=== PATIENT | male | born 1975 ===

== ENCOUNTER 2018-09-11 09:47 | Emergency (ER) | payer OTHER ==
[~2018-09-11] VITALS: Ht 177.8 cm; Wt 86.2 kg
[~2018-09-11 09:47] MED LIST: "\\\"MUSCLE RELAXER\\\""; ALBU90OI INH; AMOX500 PO; BENZ100A PO; BENZ2 PO; Benztropine Me0.5 MG; CLON1 PO; DIVA500EC PO; DOXY100 PO; HALO5 PO; HYDACE5 PO; IBUP600 PO; IBUP800 PO; LAVAP17G PO; LISI20 PO; LOXA10 PO; MIRT15 PO; MOMENI; Monodox100 MG PO; NAPR500 PO; NAPR550 PO; OMEP20ER PO; PENVK500 PO; PROM25 PO; QUET200 PO; RANI150 PO; RXNAPNA550 PO; RXTRAM50 PO; SPACE CHAMBER1 EACH MC; TRAM50 PO; Trihexyphenidyl2 MG PO; Veetids 500500 MG PO; Zofran Odt8 MG SL; [UNRECOGNIZED DRUG - REMARK]
[2018-09-11] MEDS ORDERED: Ultram50 MG PO (10:13)
[2018-09-11] MEDS ORDERED: Veetids 500500 MG PO (10:13)
== END 2018-09-11 10:25 | disposition home or self-care (01) ==
LOC: ER 09:47
DX: K08.89 Other specified disorders of teeth and supporting structures (principal); F17.210 Nicotine dependence, cigarettes, uncomplicated
CPT/HCPCS: 99282

== ENCOUNTER 2018-09-17 15:25 | Observation (INO) | payer OTHER ==
[~2018-09-17] VITALS: Ht 177.8 cm; Wt 74.8 kg
[~2018-09-17 15:25] MED LIST changes: +Ultram50 MG PO
[2018-09-17 15:56] LABS: BASOPHILS PERCENT AUTO 1 % (0-2); EOSINOPHILS ABSOLUTE AUTO 0.02 K/mm3 (0.00-0.68); EOSINOPHILS PERCENT AUTO 0 % (0-6); Hematocrit 39.8 % (37.0-53.0); Hemoglobin 13.9 g/dL (13.5-17.5); IMMATURE GRAN ABSOLUTE AUTO 0.04 K/mm3 (0.00-0.10); IMMATURE GRAN PERCENT AUTO 0 % (0-1); LYMPHOCYTES PERCENT AUTO 12 % (21-46); MONOCYTES ABSOLUTE AUTO 2.42 K/mm3 (0.16-1.47); MONOCYTES PERCENT AUTO 18 % (4-13); Mean Corpuscular HGB 30.3 pg (26.0-34.0); Mean Corpuscular HGB Conc 34.9 g/dL (31.5-36.5); Mean Corpuscular Volume 87 fL (80-100); Mean Platelet Volume 8.7 fL (9.1-12.4); NEUTROPHILS ABSOLUTE AUTO 9.68 K/mm3 (1.96-9.15); NEUTROPHILS PERCENT AUTO 70 % (41-73); Platelet Count 198 K/mm3 (150-400); RDW Coefficient Variation 13.2 % (11.7-14.2); RDW Standard Deviation 41.5 fL (35.1-46.3); Red Blood Cell Count 4.58 M/mm3 (4.30-5.90); White Blood Cell Count 13.86 K/mm3 (4.00-11.30)
[2018-09-17 16:18] LABS: Salicylate <1.7 mg/dL (2.8-20.0)
[2018-09-17 16:27] LABS: Alanine Aminotransfer (ALT/SGP 82 U/L (12-78); Albumin, Blood 3.9 g/dL (3.4-5.0); Albumin/Globulin Ratio 0.9 (0.8-1.8); Alk Phos 57 U/L (50-136); Anion Gap 14 mmol/L (6-16); Aspartate Aminotrans (AST/SGOT 461 U/L (12-37); Bilirubin, Total 1.3 mg/dL (0.1-1.0); Blood Urea Nitrogen 13 mg/dL (8-24); Bun/Creatinine Ratio 11.9 (12.0-20.0); CO2, Blood 20 mmol/L (21-32); Chloride, Blood 91 mmol/L (98-108); Creatinine, Blood 1.09 mg/dL (0.60-1.20); Globulin, Blood 4.5 g/dL (2.2-4.0); Glomerular Filtration Rate >60 (60-); Glucose, Blood 84 mg/dL (70-99); Potassium, Blood 3.9 mmol/L (3.5-5.5); Sodium, Blood 125 mmol/L (136-145); Total Protein, Blood 8.4 g/dL (6.4-8.2)
[2018-09-17 17:18] LABS: Acetaminophen, Random <2.0 ug/mL (10.0-30.0); Ethanol (Alcohol), Blood, Med <3 mg/dL
[2018-09-17 17:24] LABS: Source, Urine Clean Catch
[2018-09-17 17:29] LABS: Appearance, Urine Clear (Clear); Bilirubin, Urine Neg (Neg); Blood, Urine 3+ (Neg); Color, Urine Yellow (P-Yellow); Glucose Qualitative, Urine Neg (Neg); Ketones, Urine 3+ (Neg); Leukocyte Esterase, Urine Neg (Neg); Nitrite, Urine Neg (Neg); Protein, Urine Neg (Neg); Specific Gravity, Urine 1.005 (1.003-1.022); Urobilinogen, Urine NORM (Normal)
[2018-09-17 17:51] LABS: U Amphetamine Screen Not Detected; U Barbituate Screen Not Detected; U Benzodiazapine Screen Not Detected; U Buprenorphine Screen Not Detected; U Cannabinoids Screen Not Detected; U Cocaine Screen Not Detected; U Methadone Screen Not Detected; U Methamphetamine Screen Not Detected; U Opiates Screen Not Detected; U Oxycodone Screen Not Detected; U Phencyclidine Screen Not Detected; U Propoxyphene Screen Not Detected
[2018-09-17 17:53] LABS: Squamous Epithelial Cells Rare /hpf (Few)
[2018-09-17 17:54] LABS: Bacteria Not Seen /hpf; White Blood Cells, Urine Not Seen /hpf (0-5)
[2018-09-17 21:40] LABS: Magnesium, Blood 1.5 mg/dL (1.6-2.4); Phosphorus, Blood 3.1 mg/dL (2.5-4.9)
[2018-09-17 23:36] LABS: Alanine Aminotransfer (ALT/SGP 79 U/L (12-78); Albumin, Blood 3.1 g/dL (3.4-5.0); Albumin/Globulin Ratio 0.8 (0.8-1.8); Alk Phos 50 U/L (50-136); Anion Gap 10 mmol/L (6-16); Aspartate Aminotrans (AST/SGOT 416 U/L (12-37); Bilirubin, Total 0.7 mg/dL (0.1-1.0); Blood Urea Nitrogen 16 mg/dL (8-24); Bun/Creatinine Ratio 13.2 (12.0-20.0); CO2, Blood 25 mmol/L (21-32); Calcium, Blood 7.9 mg/dL (8.5-10.1); Chloride, Blood 100 mmol/L (98-108); Creatinine, Blood 1.21 mg/dL (0.60-1.20); Glomerular Filtration Rate >60 (60-); Glucose, Blood 85 mg/dL (70-99); Total Protein, Blood 7.1 g/dL (6.4-8.2)
[2018-09-17 23:39] LABS: Sodium, Blood 135 mmol/L (136-145)
[2018-09-17 23:40] LABS: Calcium, Ionized (POC) 1.16 mmol/L (1.10-1.46); Chloride (POC) 100 mmol/L (98-108); Creatinine (POC) 1.2 mg/dL (0.8-1.3); Glucose (ISTAT POC) 89 mg/dL (70-99); Hemoglobin (POC) 13.6 g/dL (13.5-17.5); Potassium (POC) 3.9 mmol/L (3.5-5.5); Sodium (POC) 138 mmol/L (135-148); Total CO2 (POC) 23 mmol/L (21-32)
[2018-09-18 08:49] LABS: Anion Gap 11 mmol/L (6-16); Blood Urea Nitrogen 14 mg/dL (8-24); CO2, Blood 23 mmol/L (21-32); Calcium, Blood 8.4 mg/dL (8.5-10.1); Chloride, Blood 105 mmol/L (98-108); Creatinine, Blood 1.17 mg/dL (0.60-1.20); Glomerular Filtration Rate >60 (60-); Glucose, Blood 107 mg/dL (70-99); Sodium, Blood 139 mmol/L (136-145)
[2018-09-18] MEDS ORDERED: TRAM50 (20:57)
[2018-09-18] MEDS ORDERED: BENZ2 (20:57)
[2018-09-18] MEDS ORDERED: Trihexyphenidyl5 MG (20:58)
[2018-09-19] MEDS ORDERED: Requip0.5 MG PO (09:23)
[2018-09-20 07:08] LABS: HBSAG SCREEN Negative (Negative); HEP A AB, IGM Negative (Negative); HEP B CORE AB, IGM Negative (Negative); HEP C VIRUS AB >11.0 (0.0-0.9)
== END 2018-09-19 10:00 | disposition home or self-care (01) ==
LOC: ER 15:25 → EOR 15:26
PROVIDERS: Emergency Medicine; Physician Assistant; ADMIT Emergency Medicine
DX: F23 Brief psychotic disorder (principal); F31.9 Bipolar disorder, unspecified; F19.10 Other psychoactive substance abuse, uncomplicated; E87.1 Hypo-osmolality and hyponatremia; D72.829 Elevated white blood cell count, unspecified; F17.210 Nicotine dependence, cigarettes, uncomplicated; R00.0 Tachycardia, unspecified; Z79.899 Other long term (current) drug therapy
CPT/HCPCS: 36415; 71046; 80047; 80048; 80053; 80074; 81001; 83735; 84100; 84443; 85014; 85025; 93005; 93010; 96360; 96372; 99285-25; G0378; G0480; J1200; J1630; J7030; Q3014

== ENCOUNTER 2018-09-19 14:53 | Emergency (ER) | payer OTHER ==
[~2018-09-19] VITALS: Ht 177.8 cm; Wt 86.2 kg
[~2018-09-19 14:53] MED LIST changes: +BENZ2; +Requip0.5 MG PO; +TRAM50; +Trihexyphenidyl5 MG
[2018-09-19 15:45] LABS: BASOPHILS ABSOLUTE AUTO 0.11 K/mm3 (0.00-0.23); BASOPHILS PERCENT AUTO 1 % (0-2); EOSINOPHILS ABSOLUTE AUTO 0.46 K/mm3 (0.00-0.68); EOSINOPHILS PERCENT AUTO 4 % (0-6); Hematocrit 39.8 % (37.0-53.0); Hemoglobin 13.4 g/dL (13.5-17.5); IMMATURE GRAN ABSOLUTE AUTO 0.04 K/mm3 (0.00-0.10); IMMATURE GRAN PERCENT AUTO 0 % (0-1); LYMPHOCYTES ABSOLUTE AUTO 2.05 K/mm3 (0.84-5.20); LYMPHOCYTES PERCENT AUTO 19 % (21-46); MONOCYTES ABSOLUTE AUTO 1.89 K/mm3 (0.16-1.47); MONOCYTES PERCENT AUTO 18 % (4-13); Mean Corpuscular HGB 30.9 pg (26.0-34.0); Mean Corpuscular HGB Conc 33.7 g/dL (31.5-36.5); Mean Platelet Volume 8.7 fL (9.1-12.4); NEUTROPHILS ABSOLUTE AUTO 6.22 K/mm3 (1.96-9.15); NEUTROPHILS PERCENT AUTO 58 % (41-73); Platelet Count 216 K/mm3 (150-400); RDW Coefficient Variation 13.6 % (11.7-14.2); RDW Standard Deviation 46.4 fL (35.1-46.3); Red Blood Cell Count 4.34 M/mm3 (4.30-5.90); White Blood Cell Count 10.77 K/mm3 (4.00-11.30)
[2018-09-19 15:46] LABS: Mean Corpuscular Volume 92 fL (80-100)
[2018-09-19 16:05] LABS: Alanine Aminotransfer (ALT/SGP 82 U/L (12-78); Albumin, Blood 3.4 g/dL (3.4-5.0); Albumin/Globulin Ratio 0.8 (0.8-1.8); Alk Phos 70 U/L (50-136); Anion Gap 8 mmol/L (6-16); Aspartate Aminotrans (AST/SGOT 214 U/L (12-37); Bilirubin, Total 0.3 mg/dL (0.1-1.0); Blood Urea Nitrogen 18 mg/dL (8-24); Bun/Creatinine Ratio 17.8 (12.0-20.0); CO2, Blood 23 mmol/L (21-32); Calcium, Blood 8.1 mg/dL (8.5-10.1); Chloride, Blood 109 mmol/L (98-108); Creatinine, Blood 1.01 mg/dL (0.60-1.20); Globulin, Blood 4.4 g/dL (2.2-4.0); Glomerular Filtration Rate >60 (60-); Glucose, Blood 96 mg/dL (70-99); Potassium, Blood 4.3 mmol/L (3.5-5.5); Sodium, Blood 140 mmol/L (136-145); Total Protein, Blood 7.8 g/dL (6.4-8.2)
== END 2018-09-19 16:36 | disposition home or self-care (01) ==
LOC: ER 14:53
PROVIDERS: Physician Assistant
DX: G25.81 Restless legs syndrome (principal); Z79.899 Other long term (current) drug therapy; Z79.891 Long term (current) use of opiate analgesic; F17.210 Nicotine dependence, cigarettes, uncomplicated; F20.9 Schizophrenia, unspecified
CPT/HCPCS: 36415; 80053; 85025; 99283

== ENCOUNTER 2018-09-21 15:56 | Emergency (ER) | payer OTHER ==
[~2018-09-21] VITALS: Ht 177.8 cm; Wt 86.2 kg
[2018-09-22] MEDS ORDERED: Ropinirole HCl0.5 MG PO (02:17)
== END 2018-09-21 16:19 | disposition home or self-care (01) ==
LOC: ER 15:56
DX: Z76.0 Encounter for issue of repeat prescription (principal); Z79.891 Long term (current) use of opiate analgesic; Z79.899 Other long term (current) drug therapy; F20.9 Schizophrenia, unspecified; F17.210 Nicotine dependence, cigarettes, uncomplicated
CPT/HCPCS: 99281

== ENCOUNTER 2018-09-22 02:05 | Emergency (ER) | payer OTHER ==
[~2018-09-22] VITALS: Ht 177.8 cm; Wt 86.2 kg
[2018-09-22] MEDS ORDERED: Ropinirole HCl0.5 MG PO (02:17)
== END 2018-09-22 02:39 | disposition home or self-care (01) ==
LOC: ER 02:05
DX: M46.1 Sacroiliitis, not elsewhere classified (principal); Z79.899 Other long term (current) drug therapy; F17.210 Nicotine dependence, cigarettes, uncomplicated
CPT/HCPCS: 96372; 99283-25; J1885

== ENCOUNTER 2018-09-22 03:39 | Emergency (ER) | payer OTHER ==
[~2018-09-22] VITALS: Ht 177.8 cm; Wt 86.2 kg
[~2018-09-22 03:39] MED LIST changes: +Ropinirole HCl0.5 MG PO
== END 2018-09-22 03:45 | disposition home or self-care (01) ==
LOC: ER 03:39
DX: R44.0 Auditory hallucinations (principal); Z79.899 Other long term (current) drug therapy; F20.9 Schizophrenia, unspecified; F17.210 Nicotine dependence, cigarettes, uncomplicated
CPT/HCPCS: 99284

== ENCOUNTER 2018-09-28 11:57 | Emergency (ER) | payer OTHER ==
[~2018-09-28] VITALS: Ht 177.8 cm; Wt 86.2 kg
[2018-09-28] MEDS ORDERED: Requip0.5 MG PO (12:03)
== END 2018-09-28 12:10 | disposition home or self-care (01) ==
LOC: ER 11:57
DX: Z76.0 Encounter for issue of repeat prescription (principal); Z79.899 Other long term (current) drug therapy; F20.9 Schizophrenia, unspecified; F17.210 Nicotine dependence, cigarettes, uncomplicated
CPT/HCPCS: 99281

== ENCOUNTER 2019-01-13 11:01 | Emergency (ER) | payer OTHER ==
[~2019-01-13] VITALS: Ht 177.8 cm; Wt 86.2 kg
[2019-01-13] MEDS ORDERED: BUPR75 PO (11:18)
== END 2019-01-13 12:47 | disposition left against medical advice (07) ==
LOC: ER 11:01
DX: Z53.21 Procedure and treatment not carried out due to patient leaving prior to being seen by health care provider (principal); F41.9 Anxiety disorder, unspecified; M79.604 Pain in right leg
CPT/HCPCS: 99281

== ENCOUNTER 2019-02-01 06:19 | Emergency (ER) | payer OTHER ==
[~2019-02-01] VITALS: Ht 177.8 cm; Wt 90.7 kg
[~2019-02-01 06:19] MED LIST changes: +BUPR75 PO
[2019-02-01] MEDS ORDERED: INVEGA SUS156 MG/1 M IM (06:38)
[2019-02-01] MEDS ORDERED: Requip0.5 MG PO (06:38)
== END 2019-02-01 07:00 | disposition home or self-care (01) ==
LOC: ER 06:19
DX: M79.661 Pain in right lower leg (principal); Z79.899 Other long term (current) drug therapy; F20.9 Schizophrenia, unspecified; Z85.528 Personal history of other malignant neoplasm of kidney; Z87.891 Personal history of nicotine dependence
CPT/HCPCS: 99283

== ENCOUNTER 2019-02-16 06:04 | Emergency (ER) | payer OTHER ==
[~2019-02-16] VITALS: Ht 177.8 cm; Wt 90.7 kg
[~2019-02-16 06:04] MED LIST changes: +INVEGA SUS156 MG/1 M IM
[2019-02-16 06:53] LABS: Source, Urine Clean Catch
[2019-02-16 07:00] LABS: Appearance, Urine Clear (Clear); Bilirubin, Urine Neg (Neg); Blood, Urine 2+ (Neg); Color, Urine Yellow (P-Yellow); Glucose Qualitative, Urine Neg (Neg); Ketones, Urine Neg (Neg); Leukocyte Esterase, Urine Neg (Neg); Nitrite, Urine Neg (Neg); Protein, Urine Neg (Neg); Urobilinogen, Urine NORM (Normal)
[2019-02-16 07:25] LABS: Bacteria Not Seen /hpf; Squamous Epithelial Cells Not Seen /hpf (Few); White Blood Cells, Urine 0-2 /hpf (0-5)
[2019-02-16 07:32] LABS: BASOPHILS ABSOLUTE AUTO 0.08 K/mm3 (0.00-0.23); BASOPHILS PERCENT AUTO 1 % (0-2); EOSINOPHILS ABSOLUTE AUTO 0.26 K/mm3 (0.00-0.68); EOSINOPHILS PERCENT AUTO 2 % (0-6); Hematocrit 45.2 % (37.0-53.0); Hemoglobin 15.6 g/dL (13.5-17.5); IMMATURE GRAN ABSOLUTE AUTO 0.02 K/mm3 (0.00-0.10); IMMATURE GRAN PERCENT AUTO 0 % (0-1); LYMPHOCYTES ABSOLUTE AUTO 1.13 K/mm3 (0.84-5.20); LYMPHOCYTES PERCENT AUTO 10 % (21-46); MONOCYTES ABSOLUTE AUTO 0.96 K/mm3 (0.16-1.47); MONOCYTES PERCENT AUTO 9 % (4-13); Mean Corpuscular HGB 30.5 pg (26.0-34.0); Mean Corpuscular HGB Conc 34.5 g/dL (31.5-36.5); Mean Corpuscular Volume 88 fL (80-100); NEUTROPHILS ABSOLUTE AUTO 8.83 K/mm3 (1.96-9.15); NEUTROPHILS PERCENT AUTO 78 % (41-73); Platelet Count 249 K/mm3 (150-400); RDW Coefficient Variation 13.3 % (11.7-14.2); RDW Standard Deviation 43.8 fL (35.1-46.3); Red Blood Cell Count 5.12 M/mm3 (4.30-5.90); White Blood Cell Count 11.28 K/mm3 (4.00-11.30)
[2019-02-16 07:53] LABS: Alanine Aminotransfer (ALT/SGP 367 U/L (12-78); Albumin, Blood 3.7 g/dL (3.4-5.0); Albumin/Globulin Ratio 0.9 (0.8-1.8); Alk Phos 93 U/L (50-136); Anion Gap 7 mmol/L (6-16); Aspartate Aminotrans (AST/SGOT 143 U/L (12-37); Bilirubin, Total 1.1 mg/dL (0.1-1.0); Blood Urea Nitrogen 10 mg/dL (8-24); CO2, Blood 25 mmol/L (21-32); Calcium, Blood 8.6 mg/dL (8.5-10.1); Chloride, Blood 104 mmol/L (98-108); Globulin, Blood 4.3 g/dL (2.2-4.0); Glomerular Filtration Rate >60 (60-); Glucose, Blood 99 mg/dL (70-99); Sodium, Blood 136 mmol/L (136-145)
[2019-02-16] MEDS ORDERED: ONDA4ODT MM (08:23)
== END 2019-02-16 08:59 | disposition home or self-care (01) ==
LOC: ER 06:04
PROVIDERS: Emergency Medicine
DX: R10.9 Unspecified abdominal pain (principal); F20.9 Schizophrenia, unspecified; M54.9 Dorsalgia, unspecified; G89.29 Other chronic pain; Z79.899 Other long term (current) drug therapy
CPT/HCPCS: 80053; 81001; 83690; 85025; 96374; 99284-25; J1885

== ENCOUNTER 2019-07-14 05:08 | Emergency (ER) | payer OTHER ==
[~2019-07-14] VITALS: Ht 175.3 cm; Wt 72.6 kg
[~2019-07-14 05:08] MED LIST changes: +ONDA4ODT MM
== END 2019-07-14 05:27 | disposition home or self-care (01) ==
LOC: ER 05:08
DX: F15.10 Other stimulant abuse, uncomplicated (principal); F17.210 Nicotine dependence, cigarettes, uncomplicated; F17.290 Nicotine dependence, other tobacco product, uncomplicated; Z85.520 Personal history of malignant carcinoid tumor of kidney
CPT/HCPCS: 99282

== ENCOUNTER 2019-08-09 02:40 | Emergency (ER) | payer OTHER ==
[~2019-08-09] VITALS: Ht 177.8 cm; Wt 81.7 kg
== END 2019-08-09 03:41 | disposition home or self-care (01) ==
LOC: ER 02:40
DX: Z00.00 Encounter for general adult medical examination without abnormal findings (principal); F20.9 Schizophrenia, unspecified; F17.210 Nicotine dependence, cigarettes, uncomplicated
CPT/HCPCS: 99281

== ENCOUNTER 2019-08-10 06:21 | Emergency (ER) | payer OTHER ==
[~2019-08-10] VITALS: Ht 180.3 cm; Wt 90.7 kg
== END 2019-08-10 06:44 | disposition home or self-care (01) ==
LOC: ER 06:21
DX: M79.605 Pain in left leg (principal); G89.29 Other chronic pain; F20.9 Schizophrenia, unspecified; Z85.53 Personal history of malignant neoplasm of renal pelvis
CPT/HCPCS: 99282

== ENCOUNTER 2019-08-11 20:10 | Emergency (ER) | payer OTHER ==
[~2019-08-11] VITALS: Ht 177.8 cm; Wt 77.1 kg
== END 2019-08-11 21:25 | disposition home or self-care (01) ==
LOC: ER 20:10
DX: R05 Cough (principal); F20.9 Schizophrenia, unspecified; M54.9 Dorsalgia, unspecified; G89.29 Other chronic pain; F17.210 Nicotine dependence, cigarettes, uncomplicated
CPT/HCPCS: 87081; 87430; 99283

== ENCOUNTER 2019-08-13 20:15 | Emergency (ER) | payer OTHER ==
[~2019-08-13] VITALS: Ht 170.2 cm; Wt 77.1 kg
[2019-08-13 21:02] LABS: BASOPHILS ABSOLUTE AUTO 0.12 K/mm3 (0.00-0.23); BASOPHILS PERCENT AUTO 1 % (0-2); EOSINOPHILS ABSOLUTE AUTO 0.35 K/mm3 (0.00-0.68); EOSINOPHILS PERCENT AUTO 3 % (0-6); Hematocrit 45.8 % (37.0-53.0); Hemoglobin 15.6 g/dL (13.5-17.5); IMMATURE GRAN ABSOLUTE AUTO 0.04 K/mm3 (0.00-0.10); IMMATURE GRAN PERCENT AUTO 0 % (0-1); LYMPHOCYTES ABSOLUTE AUTO 1.78 K/mm3 (0.84-5.20); LYMPHOCYTES PERCENT AUTO 17 % (21-46); MONOCYTES PERCENT AUTO 12 % (4-13); Mean Corpuscular HGB 31.7 pg (26.0-34.0); Mean Corpuscular HGB Conc 34.1 g/dL (31.5-36.5); Mean Corpuscular Volume 93 fL (80-100); Mean Platelet Volume 9.2 fL (9.1-12.4); NEUTROPHILS ABSOLUTE AUTO 7.07 K/mm3 (1.96-9.15); NEUTROPHILS PERCENT AUTO 66 % (41-73); Platelet Count 253 K/mm3 (150-400); RDW Coefficient Variation 12.9 % (11.7-14.2); RDW Standard Deviation 44.4 fL (35.1-46.3); Red Blood Cell Count 4.92 M/mm3 (4.30-5.90); White Blood Cell Count 10.66 K/mm3 (4.00-11.30)
[2019-08-13] MEDS ORDERED: BENZ100A PO (21:05)
[2019-08-13 21:21] LABS: Alanine Aminotransfer (ALT/SGP 31 U/L (12-78); Albumin, Blood 3.4 g/dL (3.4-5.0); Albumin/Globulin Ratio 0.8 (0.8-1.8); Alk Phos 90 U/L (50-136); Anion Gap 9 mmol/L (6-16); Aspartate Aminotrans (AST/SGOT 30 U/L (12-37); Bilirubin, Total 0.3 mg/dL (0.1-1.0); Blood Urea Nitrogen 13 mg/dL (8-24); Bun/Creatinine Ratio 15.6 (12.0-20.0); CO2, Blood 27 mmol/L (21-32); Calcium, Blood 8.5 mg/dL (8.5-10.1); Chloride, Blood 104 mmol/L (98-108); Creatinine, Blood 0.83 mg/dL (0.60-1.20); Ethanol (Alcohol), Blood, Med 123 mg/dL; Globulin, Blood 4.3 g/dL (2.2-4.0); Glomerular Filtration Rate >60 (60-); Glucose, Blood 125 mg/dL (70-99); Potassium, Blood 4.1 mmol/L (3.5-5.5); Sodium, Blood 140 mmol/L (136-145); Total Protein, Blood 7.7 g/dL (6.4-8.2)
== END 2019-08-13 21:20 | disposition home or self-care (01) ==
LOC: ER 20:15
PROVIDERS: Emergency Medicine
DX: F15.10 Other stimulant abuse, uncomplicated (principal); J06.9 Acute upper respiratory infection, unspecified; F20.9 Schizophrenia, unspecified
CPT/HCPCS: 36415; 80053; 85025; 99284; G0480

== ENCOUNTER 2019-08-14 04:57 | Emergency (ER) | payer OTHER ==
[~2019-08-14] VITALS: Ht 180.3 cm; Wt 77.1 kg
== END 2019-08-14 05:20 | disposition home or self-care (01) ==
LOC: ER 04:57
DX: L97.529 Non-pressure chronic ulcer of other part of left foot with unspecified severity (principal); F20.9 Schizophrenia, unspecified; F17.200 Nicotine dependence, unspecified, uncomplicated
CPT/HCPCS: 99282

== ENCOUNTER 2019-08-15 03:07 | Emergency (ER) | payer OTHER ==
[~2019-08-15] VITALS: Ht 177.8 cm; Wt 99.8 kg
== END 2019-08-15 05:15 | disposition home or self-care (01) ==
LOC: ER 03:07
DX: Z00.8 Encounter for other general examination (principal); F15.10 Other stimulant abuse, uncomplicated; Z59.0 Homelessness; F20.9 Schizophrenia, unspecified; F17.200 Nicotine dependence, unspecified, uncomplicated; Z85.528 Personal history of other malignant neoplasm of kidney
CPT/HCPCS: 99283

== ENCOUNTER 2019-08-28 19:25 | Emergency (ER) | payer OTHER ==
[~2019-08-28] VITALS: Ht 172.7 cm; Wt 83.9 kg
== END 2019-08-28 19:43 ==
LOC: ER 19:25
DX: F19.129 Other psychoactive substance abuse with intoxication, unspecified (principal); F10.129 Alcohol abuse with intoxication, unspecified; F17.210 Nicotine dependence, cigarettes, uncomplicated; F17.290 Nicotine dependence, other tobacco product, uncomplicated
CPT/HCPCS: 99282

== ENCOUNTER 2019-11-17 09:21 | Emergency (ER) | payer OTHER ==
[~2019-11-17] VITALS: Ht 170.2 cm; Wt 70.3 kg
[2019-11-17 10:22] LABS: BASOPHILS ABSOLUTE AUTO 0.07 K/mm3 (0.00-0.23); BASOPHILS PERCENT AUTO 1 % (0-2); EOSINOPHILS ABSOLUTE AUTO 0.02 K/mm3 (0.00-0.68); EOSINOPHILS PERCENT AUTO 0 % (0-6); Hematocrit 48.1 % (37.0-53.0); Hemoglobin 16.5 g/dL (13.5-17.5); IMMATURE GRAN ABSOLUTE AUTO 0.02 K/mm3 (0.00-0.10); IMMATURE GRAN PERCENT AUTO 0 % (0-1); LYMPHOCYTES ABSOLUTE AUTO 1.49 K/mm3 (0.84-5.20); LYMPHOCYTES PERCENT AUTO 12 % (21-46); MONOCYTES ABSOLUTE AUTO 1.01 K/mm3 (0.16-1.47); MONOCYTES PERCENT AUTO 8 % (4-13); Mean Corpuscular HGB 30.7 pg (26.0-34.0); Mean Corpuscular HGB Conc 34.3 g/dL (31.5-36.5); Mean Corpuscular Volume 90 fL (80-100); Mean Platelet Volume 9.8 fL (9.1-12.4); NEUTROPHILS ABSOLUTE AUTO 9.59 K/mm3 (1.96-9.15); NEUTROPHILS PERCENT AUTO 79 % (41-73); Platelet Count 244 K/mm3 (150-400); RDW Coefficient Variation 12.6 % (11.7-14.2); RDW Standard Deviation 41.2 fL (35.1-46.3); Red Blood Cell Count 5.37 M/mm3 (4.30-5.90)
[2019-11-17 10:36] LABS: Alanine Aminotransfer (ALT/SGP 71 U/L (12-78); Albumin, Blood 4.4 g/dL (3.4-5.0); Alk Phos 86 U/L (50-136); Anion Gap 5 mmol/L (6-16); Aspartate Aminotrans (AST/SGOT 45 U/L (12-37); Bilirubin, Total 0.6 mg/dL (0.1-1.0); Blood Urea Nitrogen 6 mg/dL (8-24); Bun/Creatinine Ratio 6.6 (12.0-20.0); CO2, Blood 28 mmol/L (21-32); Chloride, Blood 107 mmol/L (98-108); Globulin, Blood 4.4 g/dL (2.2-4.0); Glomerular Filtration Rate >60 (60-); Glucose, Blood 93 mg/dL (70-99); Potassium, Blood 3.7 mmol/L (3.5-5.5); Sodium, Blood 140 mmol/L (136-145); Total Protein, Blood 8.8 g/dL (6.4-8.2)
== END 2019-11-17 13:09 | disposition home or self-care (01) ==
LOC: ER 09:21
PROVIDERS: Emergency Medicine
DX: R10.31 Right lower quadrant pain (principal); F20.9 Schizophrenia, unspecified; F60.2 Antisocial personality disorder; F17.210 Nicotine dependence, cigarettes, uncomplicated
CPT/HCPCS: 36415; 80053; 85025; 99284

== ENCOUNTER 2021-01-25 15:00 | Emergency (ER) | payer OTHER ==
[~2021-01-25] VITALS: Ht 177.8 cm; Wt 81.7 kg
[2021-01-25] MEDS ORDERED: BUPR150ER PO (15:10)
== END 2021-01-25 15:13 | disposition home or self-care (01) ==
LOC: ER 15:00
DX: Z76.0 Encounter for issue of repeat prescription (principal); F17.210 Nicotine dependence, cigarettes, uncomplicated
CPT/HCPCS: 99281

== ENCOUNTER 2021-04-26 02:51 | Emergency (ER) | payer OTHER ==
[~2021-04-26] VITALS: Ht 177.8 cm; Wt 81.7 kg
[~2021-04-26 02:51] MED LIST changes: +BUPR150ER PO
[2021-04-26 06:55] LABS: BASOPHILS ABSOLUTE AUTO 0.08 K/mm3 (0.00-0.23); BASOPHILS PERCENT AUTO 1 % (0-2); EOSINOPHILS ABSOLUTE AUTO 0.18 K/mm3 (0.00-0.68); EOSINOPHILS PERCENT AUTO 2 % (0-6); Hematocrit 41.5 % (37.0-53.0); Hemoglobin 14.3 g/dL (13.5-17.5); IMMATURE GRAN ABSOLUTE AUTO 0.02 K/mm3 (0.00-0.10); IMMATURE GRAN PERCENT AUTO 0 % (0-1); LYMPHOCYTES ABSOLUTE AUTO 1.71 K/mm3 (0.84-5.20); LYMPHOCYTES PERCENT AUTO 22 % (21-46); MONOCYTES ABSOLUTE AUTO 1.12 K/mm3 (0.16-1.47); MONOCYTES PERCENT AUTO 15 % (4-13); Mean Corpuscular HGB 30.8 pg (26.0-34.0); Mean Corpuscular HGB Conc 34.5 g/dL (31.5-36.5); Mean Corpuscular Volume 89 fL (80-100); Mean Platelet Volume 9.6 fL (9.1-12.4); NEUTROPHILS ABSOLUTE AUTO 4.54 K/mm3 (1.96-9.15); NEUTROPHILS PERCENT AUTO 59 % (41-73); Platelet Count 179 K/mm3 (150-400); RDW Coefficient Variation 13.1 % (11.7-14.2); RDW Standard Deviation 42.7 fL (35.1-46.3); Red Blood Cell Count 4.64 M/mm3 (4.30-5.90); White Blood Cell Count 7.65 K/mm3 (4.00-11.30)
[2021-04-26 07:14] LABS: Alanine Aminotransfer (ALT/SGP 42 U/L (12-78); Albumin, Blood 3.5 g/dL (3.4-5.0); Albumin/Globulin Ratio 0.9 (0.8-1.8); Alk Phos 63 U/L (50-136); Anion Gap 8 mmol/L (6-16); Aspartate Aminotrans (AST/SGOT 36 U/L (12-37); Bilirubin, Total 0.9 mg/dL (0.1-1.0); Blood Urea Nitrogen 11 mg/dL (8-24); Bun/Creatinine Ratio 11.3 (12.0-20.0); CO2, Blood 24 mmol/L (21-32); Calcium, Blood 8.9 mg/dL (8.5-10.1); Chloride, Blood 103 mmol/L (98-108); Creatinine, Blood 0.97 mg/dL (0.60-1.20); Globulin, Blood 3.8 g/dL (2.2-4.0); Glomerular Filtration Rate >60 (60-); Glucose, Blood 97 mg/dL (70-99); Potassium, Blood 4.2 mmol/L (3.5-5.5); Sodium, Blood 135 mmol/L (136-145); Total Protein, Blood 7.3 g/dL (6.4-8.2)
== END 2021-04-26 07:41 | disposition home or self-care (01) ==
LOC: ER 02:51
PROVIDERS: Emergency Medicine
DX: R10.31 Right lower quadrant pain (principal); F17.210 Nicotine dependence, cigarettes, uncomplicated; F70 Mild intellectual disabilities; Z85.528 Personal history of other malignant neoplasm of kidney
CPT/HCPCS: 36415; 80053; 83690; 85025; 99284; J7120

== ENCOUNTER 2021-05-25 14:46 | Observation (INO) | payer OTHER ==
[~2021-05-25] VITALS: Ht 165.1 cm; Wt 81.7 kg
[2021-05-25 15:41] LABS: BASOPHILS ABSOLUTE AUTO 0.09 K/mm3 (0.00-0.23); BASOPHILS PERCENT AUTO 1 % (0-2); EOSINOPHILS ABSOLUTE AUTO 0.12 K/mm3 (0.00-0.68); EOSINOPHILS PERCENT AUTO 1 % (0-6); Hematocrit 45.6 % (37.0-53.0); Hemoglobin 15.8 g/dL (13.5-17.5); IMMATURE GRAN ABSOLUTE AUTO 0.03 K/mm3 (0.00-0.10); IMMATURE GRAN PERCENT AUTO 0 % (0-1); LYMPHOCYTES ABSOLUTE AUTO 1.66 K/mm3 (0.84-5.20); LYMPHOCYTES PERCENT AUTO 17 % (21-46); MONOCYTES ABSOLUTE AUTO 1.33 K/mm3 (0.16-1.47); MONOCYTES PERCENT AUTO 14 % (4-13); Mean Corpuscular HGB 30.7 pg (26.0-34.0); Mean Corpuscular HGB Conc 34.6 g/dL (31.5-36.5); Mean Corpuscular Volume 89 fL (80-100); Mean Platelet Volume 9.8 fL (9.1-12.4); NEUTROPHILS ABSOLUTE AUTO 6.36 K/mm3 (1.96-9.15); NEUTROPHILS PERCENT AUTO 66 % (41-73); Platelet Count 227 K/mm3 (150-400); RDW Coefficient Variation 13.2 % (11.7-14.2); RDW Standard Deviation 43.4 fL (35.1-46.3); Red Blood Cell Count 5.15 M/mm3 (4.30-5.90); White Blood Cell Count 9.59 K/mm3 (4.00-11.30)
[2021-05-25 15:59] LABS: Alanine Aminotransfer (ALT/SGP 28 U/L (12-78); Albumin, Blood 3.8 g/dL (3.4-5.0); Albumin/Globulin Ratio 0.8 (0.8-1.8); Alk Phos 75 U/L (50-136); Anion Gap 6 mmol/L (6-16); Aspartate Aminotrans (AST/SGOT 36 U/L (12-37); Bilirubin, Total 1.4 mg/dL (0.1-1.0); Blood Urea Nitrogen 9 mg/dL (8-24); Bun/Creatinine Ratio 8.5 (12.0-20.0); CO2, Blood 25 mmol/L (21-32); Calcium, Blood 9.4 mg/dL (8.5-10.1); Chloride, Blood 103 mmol/L (98-108); Creatinine, Blood 1.06 mg/dL (0.60-1.20); Ethanol (Alcohol), Blood, Med <3 mg/dL; Globulin, Blood 4.5 g/dL (2.2-4.0); Glomerular Filtration Rate >60 (60-); Glucose, Blood 118 mg/dL (70-99); Potassium, Blood 4.3 mmol/L (3.5-5.5); Salicylate <1.7 mg/dL (2.8-20.0); Sodium, Blood 134 mmol/L (136-145); Total Protein, Blood 8.3 g/dL (6.4-8.2)
[2021-05-25 16:09] LABS: Acetaminophen, Random <2.0 ug/mL (10.0-30.0)
[2021-05-25 20:00] LABS: SARS-Cov-2 (COVID-19) PCR, MMC NEGATIVE (NEGATIVE)
[2021-05-26 09:21] LABS: Source, Urine Clean Catch
[2021-05-26 09:40] LABS: Blood, Urine 2+ (Neg); Glucose Qualitative, Urine Neg (Neg); Ketones, Urine 2+ (Neg); Leukocyte Esterase, Urine 1+ (Neg); Nitrite, Urine Pos (Neg); Protein, Urine 2+ (Neg); Urobilinogen, Urine 3+ (Normal)
[2021-05-26 09:49] LABS: Bilirubin, Urine 1+ (Neg)
[2021-05-26 09:50] LABS: Appearance, Urine Clear (Clear); Color, Urine Orange (P-Yellow)
[2021-05-26 09:51] LABS: Bacteria Few /hpf; Mucus Mod (0-Heavy); Squamous Epithelial Cells Rare /hpf (Few)
[2021-05-26 10:06] LABS: U Amphetamine Screen Not Detected; U Barbituate Screen Not Detected; U Benzodiazapine Screen DETECTED; U Buprenorphine Screen Not Detected; U Cannabinoids Screen Not Detected; U Cocaine Screen Not Detected; U Methadone Screen Not Detected; U Methamphetamine Screen Not Detected; U Opiates Screen Not Detected; U Oxycodone Screen Not Detected; U Phencyclidine Screen Not Detected; U Propoxyphene Screen Not Detected
== END 2021-06-01 03:08 ==
LOC: ER 14:46 → EOR 14:47
PROVIDERS: Physician Assistant; ADMIT Emergency Medicine
DX: F20.9 Schizophrenia, unspecified (principal); F19.11 Other psychoactive substance abuse, in remission; F79 Unspecified intellectual disabilities; F15.20 Other stimulant dependence, uncomplicated; F17.210 Nicotine dependence, cigarettes, uncomplicated; M47.812 Spondylosis without myelopathy or radiculopathy, cervical region; Z20.822 Contact with and (suspected) exposure to COVID-19; Z88.8 Allergy status to other drugs, medicaments and biological substances
CPT/HCPCS: 36415; 70450; 72125; 80053; 81001; 82947; 85025; 87086; A9270; G0480; J2060; U0004

== ENCOUNTER 2021-06-23 06:11 | Emergency (ER) | payer OTHER ==
[~2021-06-23] VITALS: Ht 172.7 cm; Wt 72.6 kg
== END 2021-06-23 08:06 | disposition home or self-care (01) ==
LOC: ER 06:11
DX: F15.10 Other stimulant abuse, uncomplicated (principal); F17.210 Nicotine dependence, cigarettes, uncomplicated
CPT/HCPCS: 99282

== ENCOUNTER 2021-06-28 01:14 | Emergency (ER) | payer OTHER ==
[~2021-06-28] VITALS: Ht 152.4 cm; Wt 79.4 kg
[2021-06-28 02:10] LABS: BASOPHILS ABSOLUTE AUTO 0.08 K/mm3 (0.00-0.23); BASOPHILS PERCENT AUTO 1 % (0-2); EOSINOPHILS ABSOLUTE AUTO 0.29 K/mm3 (0.00-0.68); EOSINOPHILS PERCENT AUTO 4 % (0-6); Hematocrit 38.8 % (37.0-53.0); Hemoglobin 13.1 g/dL (13.5-17.5); IMMATURE GRAN ABSOLUTE AUTO 0.02 K/mm3 (0.00-0.10); IMMATURE GRAN PERCENT AUTO 0 % (0-1); LYMPHOCYTES ABSOLUTE AUTO 1.78 K/mm3 (0.84-5.20); LYMPHOCYTES PERCENT AUTO 26 % (21-46); MONOCYTES PERCENT AUTO 15 % (4-13); Mean Corpuscular HGB Conc 33.8 g/dL (31.5-36.5); Mean Corpuscular Volume 92 fL (80-100); Mean Platelet Volume 9.5 fL (9.1-12.4); NEUTROPHILS ABSOLUTE AUTO 3.72 K/mm3 (1.96-9.15); NEUTROPHILS PERCENT AUTO 54 % (41-73); Platelet Count 222 K/mm3 (150-400); RDW Coefficient Variation 13.1 % (11.7-14.2); RDW Standard Deviation 44.4 fL (35.1-46.3); Red Blood Cell Count 4.23 M/mm3 (4.30-5.90); White Blood Cell Count 6.89 K/mm3 (4.00-11.30)
[2021-06-29] MEDS ORDERED: LOPE2C PO (07:44)
== END 2021-06-28 02:26 | disposition home or self-care (01) ==
LOC: ER 01:14
PROVIDERS: Emergency Medicine
DX: R05.9 Cough, unspecified (principal); R53.1 Weakness; Z20.822 Contact with and (suspected) exposure to COVID-19; F17.210 Nicotine dependence, cigarettes, uncomplicated
CPT/HCPCS: 36415; 85025; 99283

== ENCOUNTER 2021-06-28 21:35 | Emergency (ER) | payer OTHER ==
[~2021-06-28] VITALS: Ht 170.2 cm; Wt 74.8 kg
[2021-06-28 23:02] LABS: BASOPHILS ABSOLUTE AUTO 0.07 K/mm3 (0.00-0.23); BASOPHILS PERCENT AUTO 1 % (0-2); EOSINOPHILS ABSOLUTE AUTO 0.24 K/mm3 (0.00-0.68); EOSINOPHILS PERCENT AUTO 3 % (0-6); Hematocrit 43.3 % (37.0-53.0); Hemoglobin 14.4 g/dL (13.5-17.5); IMMATURE GRAN ABSOLUTE AUTO 0.02 K/mm3 (0.00-0.10); IMMATURE GRAN PERCENT AUTO 0 % (0-1); LYMPHOCYTES ABSOLUTE AUTO 1.93 K/mm3 (0.84-5.20); LYMPHOCYTES PERCENT AUTO 24 % (21-46); MONOCYTES ABSOLUTE AUTO 1.16 K/mm3 (0.16-1.47); MONOCYTES PERCENT AUTO 14 % (4-13); Mean Corpuscular HGB 31.1 pg (26.0-34.0); Mean Corpuscular HGB Conc 33.3 g/dL (31.5-36.5); Mean Corpuscular Volume 94 fL (80-100); Mean Platelet Volume 9.5 fL (9.1-12.4); NEUTROPHILS ABSOLUTE AUTO 4.72 K/mm3 (1.96-9.15); NEUTROPHILS PERCENT AUTO 58 % (41-73); Platelet Count 246 K/mm3 (150-400); RDW Standard Deviation 45.1 fL (35.1-46.3); Red Blood Cell Count 4.63 M/mm3 (4.30-5.90); White Blood Cell Count 8.14 K/mm3 (4.00-11.30)
[2021-06-28 23:19] LABS: Anion Gap 3 mmol/L (6-16); Blood Urea Nitrogen 11 mg/dL (8-24); Bun/Creatinine Ratio 11.5 (12.0-20.0); CO2, Blood 30 mmol/L (21-32); Chloride, Blood 107 mmol/L (98-108); Creatinine, Blood 0.95 mg/dL (0.60-1.20); Glomerular Filtration Rate >60 (60-); Glucose, Blood 85 mg/dL (70-99); Potassium, Blood 3.8 mmol/L (3.5-5.5); Sodium, Blood 140 mmol/L (136-145); Troponin I <0.015 ng/mL (0.000-0.040)
[2021-06-29] MEDS ORDERED: LOPE2C PO (07:44)
== END 2021-06-28 23:30 | disposition home or self-care (01) ==
LOC: ER 21:35
PROVIDERS: Student in an Organized Health Care Education/Training Program
DX: R07.9 Chest pain, unspecified (principal); F17.210 Nicotine dependence, cigarettes, uncomplicated
CPT/HCPCS: 71045; 80048; 84484; 85025; 93005; 93010; 99284-25

== ENCOUNTER 2021-06-29 06:15 | Emergency (ER) | payer OTHER ==
[~2021-06-29] VITALS: Ht 172.7 cm; Wt 68.0 kg
[2021-06-29] MEDS ORDERED: LOPE2C PO (07:44)
== END 2021-06-29 07:52 | disposition home or self-care (01) ==
LOC: ER 06:15
DX: R19.7 Diarrhea, unspecified (principal); F17.210 Nicotine dependence, cigarettes, uncomplicated
CPT/HCPCS: 99283

== ENCOUNTER 2021-06-30 02:26 | Emergency (ER) | payer OTHER ==
[~2021-06-30] VITALS: Ht 182.9 cm; Wt 83.9 kg
[~2021-06-30 02:26] MED LIST changes: +LOPE2C PO
== END 2021-06-30 03:16 | disposition home or self-care (01) ==
LOC: ER 02:26
DX: F65.9 Paraphilia, unspecified (principal); F17.210 Nicotine dependence, cigarettes, uncomplicated
CPT/HCPCS: 99281

== ENCOUNTER 2021-07-06 08:54 | Emergency (ER) | payer OTHER ==
[~2021-07-06] VITALS: Ht 170.2 cm; Wt 74.8 kg
== END 2021-07-06 10:32 | disposition home or self-care (01) ==
LOC: ER 08:54
DX: M79.605 Pain in left leg (principal); M79.604 Pain in right leg
CPT/HCPCS: 99281; A9270

== ENCOUNTER 2021-07-07 01:12 | Emergency (ER) | payer OTHER ==
[~2021-07-07] VITALS: Ht 170.2 cm; Wt 72.6 kg
== END 2021-07-07 04:15 | disposition home or self-care (01) ==
LOC: ER 01:12
DX: Z00.00 Encounter for general adult medical examination without abnormal findings (principal); Z59.00 Homelessness unspecified; F17.210 Nicotine dependence, cigarettes, uncomplicated
CPT/HCPCS: 99283

== ENCOUNTER 2021-07-08 08:00 | Emergency (ER) | payer OTHER ==
[~2021-07-08] VITALS: Ht 162.6 cm; Wt 63.5 kg
== END 2021-07-08 09:16 | disposition home or self-care (01) ==
LOC: ER 08:00
DX: Z00.00 Encounter for general adult medical examination without abnormal findings (principal)
CPT/HCPCS: 99281

== ENCOUNTER 2021-07-08 15:45 | Emergency (ER) | payer OTHER ==
[~2021-07-08] VITALS: Ht 177.8 cm; Wt 81.7 kg
== END 2021-07-08 16:33 | disposition home or self-care (01) ==
LOC: ER 15:45
DX: M79.604 Pain in right leg (principal); G89.29 Other chronic pain; F17.210 Nicotine dependence, cigarettes, uncomplicated
CPT/HCPCS: 99282; A9270

== ENCOUNTER 2021-07-08 21:20 | Emergency (ER) | payer OTHER ==
[~2021-07-08] VITALS: Ht 177.8 cm; Wt 81.7 kg
== END 2021-07-09 00:01 | disposition home or self-care (01) ==
LOC: ER 21:20
DX: M79.661 Pain in right lower leg (principal); G89.29 Other chronic pain; F17.210 Nicotine dependence, cigarettes, uncomplicated
CPT/HCPCS: 99283

== ENCOUNTER 2021-07-09 05:07 | Emergency (ER) | payer OTHER ==
[~2021-07-09] VITALS: Ht 172.7 cm; Wt 72.6 kg
== END 2021-07-09 05:24 | disposition home or self-care (01) ==
LOC: ER 05:07
DX: J34.89 Other specified disorders of nose and nasal sinuses (principal); F17.210 Nicotine dependence, cigarettes, uncomplicated
CPT/HCPCS: 99282

== ENCOUNTER 2021-08-10 23:37 | Emergency (ER) | payer SELFPAY ==
[~2021-08-10] VITALS: Ht 167.6 cm; Wt 63.5 kg
== END 2021-08-10 23:44 | disposition home or self-care (01) ==
LOC: ER 23:37
DX: F15.90 Other stimulant use, unspecified, uncomplicated (principal); Z59.00 Homelessness unspecified; F17.210 Nicotine dependence, cigarettes, uncomplicated
CPT/HCPCS: 99282

== ENCOUNTER 2021-08-21 03:46 | Emergency (ER) | payer SELFPAY ==
[~2021-08-21] VITALS: Ht 177.8 cm; Wt 72.6 kg
== END 2021-08-21 06:30 | disposition home or self-care (01) ==
LOC: ER 03:46
DX: M79.661 Pain in right lower leg (principal); F20.9 Schizophrenia, unspecified; F17.210 Nicotine dependence, cigarettes, uncomplicated

== ENCOUNTER 2021-08-21 14:26 | Emergency (ER) | payer SELFPAY ==
[~2021-08-21] VITALS: Ht 172.7 cm; Wt 74.8 kg
[2021-08-21 15:32] LABS: Source, Urine Clean Catch
[2021-08-21 15:35] LABS: BASOPHILS PERCENT AUTO 1 % (0-2); EOSINOPHILS ABSOLUTE AUTO 0.08 K/mm3 (0.00-0.68); EOSINOPHILS PERCENT AUTO 1 % (0-6); Hematocrit 47.4 % (37.0-53.0); Hemoglobin 15.8 g/dL (13.5-17.5); IMMATURE GRAN ABSOLUTE AUTO 0.05 K/mm3 (0.00-0.10); IMMATURE GRAN PERCENT AUTO 1 % (0-1); LYMPHOCYTES ABSOLUTE AUTO 2.37 K/mm3 (0.84-5.20); LYMPHOCYTES PERCENT AUTO 22 % (21-46); MONOCYTES ABSOLUTE AUTO 1.23 K/mm3 (0.16-1.47); MONOCYTES PERCENT AUTO 12 % (4-13); Mean Corpuscular HGB 30.4 pg (26.0-34.0); Mean Corpuscular HGB Conc 33.3 g/dL (31.5-36.5); Mean Corpuscular Volume 91 fL (80-100); NEUTROPHILS ABSOLUTE AUTO 6.86 K/mm3 (1.96-9.15); NEUTROPHILS PERCENT AUTO 64 % (41-73); Platelet Count 271 K/mm3 (150-400); RDW Coefficient Variation 13.2 % (11.7-14.2); RDW Standard Deviation 44.9 fL (35.1-46.3); Red Blood Cell Count 5.19 M/mm3 (4.30-5.90); White Blood Cell Count 10.69 K/mm3 (4.00-11.30)
[2021-08-21 15:36] LABS: Appearance, Urine Hazy (Clear); Bilirubin, Urine Neg (Neg); Blood, Urine 1+ (Neg); Color, Urine Yellow (P-Yellow); Glucose Qualitative, Urine Neg (Neg); Ketones, Urine Neg (Neg); Leukocyte Esterase, Urine Neg (Neg); Nitrite, Urine Neg (Neg); Protein, Urine Neg (Neg); Urobilinogen, Urine NORM (Normal); pH, Urine 6.5 (5.0-8.0)
[2021-08-21 15:50] LABS: Bacteria Rare /hpf; Squamous Epithelial Cells Rare /hpf (Few); White Blood Cells, Urine 0-2 /hpf (0-5)
[2021-08-21 15:56] LABS: U Amphetamine Screen Not Detected; U Barbituate Screen Not Detected; U Benzodiazapine Screen Not Detected; U Buprenorphine Screen Not Detected; U Cannabinoids Screen Not Detected; U Cocaine Screen Not Detected; U Methadone Screen Not Detected; U Methamphetamine Screen Not Detected; U Opiates Screen Not Detected; U Oxycodone Screen Not Detected; U Phencyclidine Screen Not Detected; U Propoxyphene Screen Not Detected
[2021-08-21 15:57] LABS: Alanine Aminotransfer (ALT/SGP 39 U/L (12-78); Albumin, Blood 3.7 g/dL (3.4-5.0); Albumin/Globulin Ratio 0.9 (0.8-1.8); Alk Phos 72 U/L (50-136); Anion Gap 10 mmol/L (6-16); Aspartate Aminotrans (AST/SGOT 33 U/L (12-37); Bilirubin, Total 0.3 mg/dL (0.1-1.0); Blood Urea Nitrogen 15 mg/dL (8-24); Bun/Creatinine Ratio 18.4 (12.0-20.0); CO2, Blood 23 mmol/L (21-32); CPK Creatine Kinase 115 U/L (39-308); Calcium, Blood 9.1 mg/dL (8.5-10.1); Chloride, Blood 108 mmol/L (98-108); Creatine Kinase MB 1.9 ng/mL (0.0-3.6); Creatine Kinase MB Index 1.7 (0.0-4.0); Creatinine, Blood 0.81 mg/dL (0.60-1.20); Globulin, Blood 4.1 g/dL (2.2-4.0); Glomerular Filtration Rate >60 (60-); Glucose, Blood 98 mg/dL (70-99); Potassium, Blood 3.3 mmol/L (3.5-5.5); Salicylate 1.8 mg/dL (2.8-20.0); Sodium, Blood 141 mmol/L (136-145); Total Protein, Blood 7.8 g/dL (6.4-8.2)
[2021-08-21 15:59] LABS: Acetaminophen, Random <2.0 ug/mL (10.0-30.0); Ethanol (Alcohol), Blood, Med 355 mg/dL
== END 2021-08-21 23:06 | disposition home or self-care (01) ==
LOC: ER 14:26
PROVIDERS: Emergency Medicine
DX: F10.129 Alcohol abuse with intoxication, unspecified (principal); F17.210 Nicotine dependence, cigarettes, uncomplicated
CPT/HCPCS: 36415; 70450; 80053; 81001; 82140; 82550; 82553; 85025; 93005; 93010; A9270; G0480

== ENCOUNTER 2021-08-22 00:01 | Emergency (ER) | payer SELFPAY ==
[~2021-08-22] VITALS: Ht 175.3 cm; Wt 68.0 kg
== END 2021-08-22 00:11 | disposition home or self-care (01) ==
LOC: ER 00:01
DX: Z00.00 Encounter for general adult medical examination without abnormal findings (principal); F17.210 Nicotine dependence, cigarettes, uncomplicated
CPT/HCPCS: 99282

== ENCOUNTER 2021-09-05 14:18 | Emergency (ER) | payer SELFPAY | END 2021-09-05 14:46 | disposition left against medical advice (07) | LOC: ER 14:18 | DX: Z53.21 Procedure and treatment not carried out due to patient leaving prior to being seen by health care provider (principal) ==

== ENCOUNTER 2021-09-06 03:09 | Emergency (ER) | payer SELFPAY ==
[~2021-09-06] VITALS: Ht 154.9 cm; Wt 45.4 kg
== END 2021-09-06 04:19 | disposition home or self-care (01) ==
LOC: ER 03:09
DX: Z00.8 Encounter for other general examination (principal); F17.210 Nicotine dependence, cigarettes, uncomplicated
CPT/HCPCS: 99282

== ENCOUNTER 2021-09-07 01:29 | Emergency (ER) | payer SELFPAY ==
[~2021-09-07] VITALS: Ht 180.3 cm; Wt 65.8 kg
== END 2021-09-07 02:34 | disposition home or self-care (01) ==
LOC: ER 01:29
DX: M25.561 Pain in right knee (principal); F17.210 Nicotine dependence, cigarettes, uncomplicated

== ENCOUNTER 2021-09-07 23:01 | Emergency (ER) | payer SELFPAY ==
[~2021-09-07] VITALS: Ht 172.7 cm; Wt 90.7 kg
== END 2021-09-07 23:14 | disposition home or self-care (01) ==
LOC: ER 23:01
DX: R05.9 Cough, unspecified (principal); M79.606 Pain in leg, unspecified; G89.29 Other chronic pain
CPT/HCPCS: 99282

== ENCOUNTER 2021-09-11 06:48 | Emergency (ER) | payer SELFPAY ==
[~2021-09-11] VITALS: Ht 177.8 cm; Wt 81.7 kg
== END 2021-09-11 07:10 | disposition home or self-care (01) ==
LOC: ER 06:48
DX: T69.022A Immersion foot, left foot, initial encounter (principal); T69.021A Immersion foot, right foot, initial encounter; F17.210 Nicotine dependence, cigarettes, uncomplicated
CPT/HCPCS: 99282

== ENCOUNTER 2021-09-14 22:59 | Emergency (ER) | payer SELFPAY ==
[~2021-09-14] VITALS: Ht 180.3 cm; Wt 79.4 kg
== END 2021-09-15 00:27 | disposition home or self-care (01) ==
LOC: ER 22:59
DX: S90.822A Blister (nonthermal), left foot, initial encounter (principal); S90.821A Blister (nonthermal), right foot, initial encounter; F17.210 Nicotine dependence, cigarettes, uncomplicated; X58.XXXA Exposure to other specified factors, initial encounter
CPT/HCPCS: 99283

== ENCOUNTER 2021-09-16 20:56 | Emergency (ER) | payer SELFPAY ==
[~2021-09-16] VITALS: Ht 154.9 cm; Wt 72.6 kg
== END 2021-09-16 22:04 | disposition home or self-care (01) ==
LOC: ER 20:56
DX: Z00.00 Encounter for general adult medical examination without abnormal findings (principal); F17.210 Nicotine dependence, cigarettes, uncomplicated; Z85.528 Personal history of other malignant neoplasm of kidney
CPT/HCPCS: 99282

== ENCOUNTER 2021-09-18 03:38 | Emergency (ER) | payer SELFPAY ==
[~2021-09-18] VITALS: Ht 165.1 cm; Wt 76.4 kg
[2021-09-19] MEDS ORDERED: IBUP400 PO (04:49)
[2021-09-19] MEDS ORDERED: ACET325 PO (04:49)
== END 2021-09-18 04:25 | disposition home or self-care (01) ==
LOC: ER 03:38
DX: G89.29 Other chronic pain (principal); M79.606 Pain in leg, unspecified; F17.210 Nicotine dependence, cigarettes, uncomplicated
CPT/HCPCS: 99282; A9270

== ENCOUNTER 2021-09-19 02:41 | Emergency (ER) | payer SELFPAY ==
[~2021-09-19] VITALS: Ht 177.8 cm; Wt 59.0 kg
[2021-09-19] MEDS ORDERED: ACET325 PO (04:49)
[2021-09-19] MEDS ORDERED: IBUP400 PO (04:49)
== END 2021-09-19 05:38 | disposition home or self-care (01) ==
LOC: ER 02:41
DX: G89.29 Other chronic pain (principal); M79.671 Pain in right foot; R05.9 Cough, unspecified; F17.210 Nicotine dependence, cigarettes, uncomplicated
CPT/HCPCS: 99283; A9270

== ENCOUNTER 2021-09-28 19:26 | Emergency (ER) | payer SELFPAY ==
[~2021-09-28] VITALS: Ht 177.8 cm; Wt 81.7 kg
[~2021-09-28 19:26] MED LIST changes: +ACET325 PO; +IBUP400 PO
== END 2021-09-29 07:14 | disposition home or self-care (01) ==
LOC: ER 19:26
DX: M25.532 Pain in left wrist (principal); J02.9 Acute pharyngitis, unspecified; Z59.00 Homelessness unspecified; F17.210 Nicotine dependence, cigarettes, uncomplicated
CPT/HCPCS: 73110; 99283-25

== ENCOUNTER 2021-09-30 09:09 | Emergency (ER) | payer SELFPAY ==
[~2021-09-30] VITALS: Ht 182.9 cm; Wt 74.8 kg
== END 2021-09-30 09:50 | disposition home or self-care (01) ==
LOC: ER 09:09
DX: S61.412A Laceration without foreign body of left hand, initial encounter (principal); S61.411A Laceration without foreign body of right hand, initial encounter; F20.9 Schizophrenia, unspecified; F17.210 Nicotine dependence, cigarettes, uncomplicated; X58.XXXA Exposure to other specified factors, initial encounter
CPT/HCPCS: 12001; 99282-25

== ENCOUNTER 2022-04-03 07:46 | Emergency (ER) | payer OTHER ==
[~2022-04-03] VITALS: Ht 172.7 cm; Wt 74.8 kg
[2022-04-03] MEDS ORDERED: FLUPHENAZINE HC10 M1 PO (08:34)
[2022-04-03] MEDS ORDERED: QUET200 PO (08:34)
[2022-04-03] MEDS ORDERED: Lopressor 25 mg25 MG PO (08:34)
== END 2022-04-03 08:43 | disposition home or self-care (01) ==
LOC: ER 07:46
DX: Z76.0 Encounter for issue of repeat prescription (principal); F17.210 Nicotine dependence, cigarettes, uncomplicated
CPT/HCPCS: 99281

== ENCOUNTER 2023-10-12 12:32 | Emergency (ER) | payer SELFPAY ==
[~2023-10-12] VITALS: Ht 172.7 cm; Wt 72.6 kg
[~2023-10-12 12:32] MED LIST changes: +FLUPHENAZINE HC10 M1 PO; +Lopressor 25 mg25 MG PO
[2023-10-12 13:50] LABS: BASOPHILS ABSOLUTE AUTO 0.06 K/mm3 (0.00-0.23); BASOPHILS PERCENT AUTO 1 % (0-2); EOSINOPHILS ABSOLUTE AUTO 0.17 K/mm3 (0.00-0.68); EOSINOPHILS PERCENT AUTO 2 % (0-6); Hematocrit 42.2 % (37.0-53.0); Hemoglobin 14.6 g/dL (13.5-17.5); IMMATURE GRAN ABSOLUTE AUTO 0.02 K/mm3 (0.00-0.10); IMMATURE GRAN PERCENT AUTO 0 % (0-1); LYMPHOCYTES ABSOLUTE AUTO 2.51 K/mm3 (0.84-5.20); LYMPHOCYTES PERCENT AUTO 30 % (21-46); MONOCYTES ABSOLUTE AUTO 1.38 K/mm3 (0.16-1.47); MONOCYTES PERCENT AUTO 17 % (4-13); Mean Corpuscular HGB 30.7 pg (26.0-34.0); Mean Corpuscular HGB Conc 34.6 g/dL (31.5-36.5); Mean Corpuscular Volume 89 fL (80-100); Mean Platelet Volume 8.9 fL (9.1-12.4); NEUTROPHILS ABSOLUTE AUTO 4.22 K/mm3 (1.96-9.15); NEUTROPHILS PERCENT AUTO 51 % (41-73); Platelet Count 187 K/mm3 (150-400); RDW Coefficient Variation 13.7 % (11.7-14.2); RDW Standard Deviation 44.7 fL (35.1-46.3); Red Blood Cell Count 4.76 M/mm3 (4.30-5.90); White Blood Cell Count 8.36 K/mm3 (4.00-11.30)
[2023-10-12 14:16] LABS: Bun/Creatinine Ratio 20.5 (12.0-20.0); Calcium, Blood 8.6 mg/dL (8.5-10.1); Creatinine, Blood 0.73 mg/dL (0.60-1.20); Potassium, Blood 3.3 mmol/L (3.5-5.5)
[2023-10-12] MEDS ORDERED: Isoniazid300 MG PO (15:32)
[2023-10-12] MEDS ORDERED: PROP80ER PO (15:33)
[2023-10-12] MEDS ORDERED: RIFA600I PO (15:33)
[2023-10-12] MEDS ORDERED: Trihexyphenidyl5 MG PO (15:33)
[2023-10-12] MEDS ORDERED: RISP2 PO (15:33)
[2023-10-12 17:29] VITALS: BP 118/81
== END 2023-10-12 17:32 | disposition home or self-care (01) ==
LOC: ER 12:32
PROVIDERS: Emergency Medicine
DX: F10.129 Alcohol abuse with intoxication, unspecified (principal); F20.9 Schizophrenia, unspecified; F17.210 Nicotine dependence, cigarettes, uncomplicated; Z79.899 Other long term (current) drug therapy
CPT/HCPCS: 36415; 80048; 85025; 99285

== ENCOUNTER 2023-10-13 11:06 | Emergency (ER) | payer SELFPAY ==
[~2023-10-13] VITALS: Ht 170.2 cm; Wt 81.7 kg
[~2023-10-13 11:06] MED LIST changes: +Isoniazid300 MG PO; +PROP80ER PO; +RIFA600I PO; +RISP2 PO; +Trihexyphenidyl5 MG PO
[2023-10-13 11:12] VITALS: BP 124/80
== END 2023-10-13 12:45 | disposition home or self-care (01) ==
LOC: ER 11:06
DX: Z00.8 Encounter for other general examination (principal); M79.604 Pain in right leg; M79.605 Pain in left leg; F20.9 Schizophrenia, unspecified; G89.29 Other chronic pain; F60.2 Antisocial personality disorder; F17.210 Nicotine dependence, cigarettes, uncomplicated; Z79.899 Other long term (current) drug therapy
CPT/HCPCS: 99283

== ENCOUNTER 2023-10-14 01:12 | Emergency (ER) | payer SELFPAY ==
[~2023-10-14] VITALS: Ht 177.8 cm; Wt 81.7 kg
[2023-10-14 01:12] VITALS: BP 118/68
== END 2023-10-14 07:36 | disposition home or self-care (01) ==
LOC: ER 01:12
DX: F10.129 Alcohol abuse with intoxication, unspecified (principal); F15.90 Other stimulant use, unspecified, uncomplicated; Z59.00 Homelessness unspecified; F17.210 Nicotine dependence, cigarettes, uncomplicated; F20.9 Schizophrenia, unspecified; F60.2 Antisocial personality disorder; Z79.899 Other long term (current) drug therapy
CPT/HCPCS: 99284

== ENCOUNTER 2023-10-15 05:11 | Emergency (ER) | payer SELFPAY ==
[~2023-10-15] VITALS: Ht 177.8 cm; Wt 81.7 kg
[2023-10-15 06:28] VITALS: BP 134/100
[2023-10-15] MEDS ORDERED: Ibuprofen 600 MG Tab PO ONE (07:15)
[2023-10-15] MEDS ORDERED: Acetaminophen 500 MG Tab PO ONE (07:15)
== END 2023-10-15 07:24 | disposition left against medical advice (07) ==
LOC: ER 05:11
DX: S80.01XA Contusion of right knee, initial encounter (principal); W18.30XA Fall on same level, unspecified, initial encounter; F17.210 Nicotine dependence, cigarettes, uncomplicated
CPT/HCPCS: 99283

== ENCOUNTER 2023-10-25 22:42 | Emergency (ER) | payer SELFPAY ==
[~2023-10-25] VITALS: Ht 167.6 cm; Wt 81.7 kg
[2023-10-25 23:03] VITALS: BP 162/86
[2023-10-26] MEDS ORDERED: Ibuprofen 600 MG Tab PO ONE (02:45)
[2023-10-26] MEDS ORDERED: Acetaminophen 500 MG Tab PO ONE (02:45)
== END 2023-10-26 02:53 | disposition home or self-care (01) ==
LOC: ER 22:42
DX: G89.29 Other chronic pain (principal); M79.604 Pain in right leg; F17.210 Nicotine dependence, cigarettes, uncomplicated
CPT/HCPCS: 73610; 99283-25

== ENCOUNTER 2023-12-26 06:49 | Emergency (ER) | payer OTHER ==
[~2023-12-26] VITALS: Ht 177.8 cm; Wt 68.0 kg
[~2023-12-26 06:49] MED LIST changes: +NARCAN4 M1
[2023-12-26 08:05] VITALS: BP 158/106
== END 2023-12-26 09:17 | disposition home or self-care (01) ==
LOC: ER 06:49
DX: M79.604 Pain in right leg (principal)
CPT/HCPCS: 99282

== ENCOUNTER 2023-12-31 07:45 | Emergency (ER) | payer OTHER ==
[~2023-12-31] VITALS: Ht 177.8 cm; Wt 81.7 kg
[2023-12-31 07:55] VITALS: BP 149/97
[2023-12-31] MEDS ORDERED: Acetaminophen 325 MG TABLET PO ONE (08:45)
== END 2023-12-31 09:29 | disposition home or self-care (01) ==
LOC: ER 07:45
DX: T69.022A Immersion foot, left foot, initial encounter (principal); T69.021A Immersion foot, right foot, initial encounter; F17.210 Nicotine dependence, cigarettes, uncomplicated
CPT/HCPCS: 99283